=== PATIENT | male | born 1955 | race Caucasian/White ===

== ENCOUNTER 2018-11-27 07:33 | Day surgery (SDC) | payer OTHER ==
[~2018-11-27 07:33] MED LIST: CEFAZOLIN 2 GM/50 ML (PMX) 50 ML IVPB; DESFLURANE 15 MIN; ROPIVACAINE 0.5 % 30 ML VIAL
[2018-11-27] MEDS ORDERED: PROPOFOL 20 ML (09:51)
[2018-11-27] MEDS ORDERED: ONDANSETRON 4 MG INJ (09:51)
[2018-11-27] MEDS ORDERED: FENTAnyl 50 MCG/ML VIAL (09:51)
[2018-11-27] MEDS ORDERED: MIDAZOLAM 1 MG/ML 2 ML INJ (09:51)
[2018-11-27] MEDS ORDERED: DEXAMETHASONE 4 MG/ML 5 ML INJ (09:51)
[2018-11-27] MEDS ORDERED: CEFAZOLIN 1 GM INJ (09:51)
[2018-11-27] MEDS ORDERED: GLYCOPYRROLATE 0.4 MG INJ (09:51)
[2018-11-27] MEDS ORDERED: NEOSTIGMINE 3 MG/3 ML SYRINGE (09:51)
[2018-11-27] MEDS ORDERED: ROCURONIUM 50 MG INJ (09:51)
[2018-11-27] MEDS ORDERED: BUPIVACAINE 0.5% (SDV) 30 ML INJ (09:57)
[2018-11-27] MEDS ORDERED: ALBUTEROL 0.083% (NEB) 2.5 MG/3 ML AMP HHN (10:30)
[2018-11-27] MEDS ORDERED: TRIMETHOBENZAMIDE 100 MG/ML VIAL IM (10:30)
[2018-11-27] MEDS ORDERED: hydrALAzine 20 MG INJ IV (10:30)
[2018-11-27] MEDS ORDERED: IPRATROPIUM (NEB) 0.5 MG/2.5 ML AMP HHN (10:30)
[2018-11-27] MEDS ORDERED: EPHEDrine SULFATE 50 MG/5 ML SYG IV (10:30)
[2018-11-27] MEDS ORDERED: DIPHENHYDRAMINE 50 MG INJ IV (10:30)
[2018-11-27] MEDS ORDERED: HYDROmorphONE 1 MG/5 ML IV SYRINGE IV (10:30)
[2018-11-27] MEDS ORDERED: LABETALOL HCL 20MG INJ IV (10:30)
[2018-11-27] MEDS ORDERED: FENTAnyl 50 MCG/ML VIAL IV ×2 (10:30)
[2018-11-27] MEDS ORDERED: OXYCODONE/ACETAMINOPHEN (5/325) TAB PO ×2 (10:30)
[2018-11-27] MEDS ORDERED: MIDAZOLAM 1 MG/ML 2 ML INJ IV (10:30)
[2018-11-27] MEDS: POLYMYXIN/BACITRACIN 1L IRRIG (11:11)
[2018-11-27] MEDS: HYDROmorphONE 1 MG/5 ML IV SYRINGE IV ×2 (11:57→12:13)
[2018-11-27] MEDS ORDERED: HYDROCODONE/APAP (5/325) TAB PO (12:00)
[2018-11-27] MEDS: MEPERIDINE 25 MG INJ IV (12:18)
[2018-11-27] MEDS: ONDANSETRON 4 MG INJ IV (12:18)
[2018-11-27] MEDS: FENTAnyl 50 MCG/ML VIAL IV ×2 (12:22→12:27)
== END 2018-11-27 13:25 | disposition home or self-care (01) ==
LOC: SDS 07:33
DX: K40.30 Unilateral inguinal hernia, with obstruction, without gangrene, not specified as recurrent (principal); E11.9 Type 2 diabetes mellitus without complications; N18.9 Chronic kidney disease, unspecified
CPT/HCPCS: 49507; 71045; 82962